=== PATIENT | male | born 1955 | race Caucasian/White ===

== ENCOUNTER 2022-11-12 14:27 | Inpatient (IN) | payer BC, MEDICARE ==
[~2022-11-12] VITALS: Ht 157.5 cm; Wt 47.3 kg
[2022-11-12] VITALS (7 sets, daily range): BP systolic 88–116; BP diastolic 55–85; PULSE 92–105; RESP 17–28; TEMP 98.3–98.5; O2SAT 97–100
[2022-11-12] MEDS: BUDESONIDE/FORMOTEROL 160/4.5MCG INHALER INH SCH (12:28)
[~2022-11-12 14:27] MED LIST: ASPIRIN EC81 MG PO; FAMOTIDINE20 MG PO
[2022-11-12] MEDS ORDERED: SODIUM CHLORIDE 0.9% 1000ML 1,000 ML IV ONE ×2 (14:45→16:15)
[2022-11-12] MEDS ORDERED: METHYLPREDNISOLONE SOD SUCC 125 MG/2ML VIAL IV ONE (14:45)
[2022-11-12] MEDS ORDERED: ALBUTEROL/IPRATROPIUM 3 ML NEB NEB ONE (14:45)
[2022-11-12 14:52] LABS: BASOPHILS % 0.1 % (0.0-1.0); LYMPHOCYTES # (AUTO) 1.9 (1.0-3.2); LYMPHOCYTES % 9.2 % (18.0-39.1); MEAN CORPUSCULAR HEMOGLOBIN 30.2 pg (28-32); MEAN CORPUSCULAR HGB CONC 32.2 g/dL (31-35); MEAN CORPUSCULAR VOLUME 93.7 fL (81-99); MONOCYTES # (AUTO) 0.9 (0.2-0.8); MONOCYTES % 4.6 % (4.4-11.3); NEUTROPHILS # (AUTO) 17.2 (2.1-6.9); NEUTROPHILS % 85.2 % (38.7-80.0); PLATELET COUNT 485 x10e3/uL (140-360); RED BLOOD COUNT 1.89 x10e6/uL (4.3-5.7); RED CELL DISTRIBUTION WIDTH 14.8 % (11.7-14.4)
[2022-11-12 14:58] LABS: HEMATOCRIT 17.7 % (38.2-49.6); HEMOGLOBIN 5.7 g/dL (14.0-18.0)
[2022-11-12] MEDS ORDERED: SODIUM CHLORIDE 0.9% 250ML 250 ML IV ONE (15:00)
[2022-11-12 15:06] LABS: ALANINE AMINOTRANSFERASE 58 IU/L (0-55); ALBUMIN 2.1 g/dL (3.5-5.0); ALBUMIN/GLOBULIN RATIO 0.6 (0.8-2.0); ALKALINE PHOSPHATASE 161 IU/L (40-150); ANION GAP 14.2 mmol/L (8-16); BLOOD UREA NITROGEN 15 mg/dL (7-26); BUN/CREATININE RATIO 25 (6-25); CALCIUM 8.3 mg/dL (8.4-10.2); CARBON DIOXIDE 27 mmol/L (22-29); CHLORIDE 100 mmol/L (98-107); CREATININE, SERUM 0.61 mg/dL (0.72-1.25); GLUCOSE 99 mg/dL (74-118); POTASSIUM 4.2 mmol/L (3.5-5.1); SODIUM 137 mmol/L (136-145)
[2022-11-12] MEDS ORDERED: Vancomycin IV 1 GM in SODIUM CHLORIDE 0.9% 250ML 250 ML IV ONE (15:15)
[2022-11-12] MEDS ORDERED: CEFEPIME 2 GM in SODIUM CHLORIDE 0.9% 100 ML IV ONE (15:15)
[2022-11-12 15:25] LABS: ABG HCO3 27 mmol/L (22-26); ABG PCO2 33 mmHg (35-45); ABG PH 7.53 (7.35-7.45); ABG PO2 64 mmHg (80-105); ABG TCO2 28
[2022-11-12] MEDS ORDERED: ONDANSETRON HCL INJ 2MG/ML 2ML 2 MG/ML VIAL IV PRN (16:30)
[2022-11-12 16:37] LABS: INR 0.95; PARTIAL THROMBOPLASTIN TIME 27.7 seconds (23.8-35.5); PROTHROMBIN TIME 13.2 seconds (11.9-14.5)
[2022-11-12 16:43] LABS: % IRON SATURATION 12 % (15-50); IRON 24 ug/dL (65-175); TOTAL IRON BINDING CAPACITY 202 ug/dL (261-478); TRANSFERRIN 144 mg/dL (174-364)
[2022-11-12] MEDS ORDERED: GUAIFENESIN/CODEINE 5 ML LIQD PO PRN (17:15)
[2022-11-12 18:23] LABS: CLARITY,URINE CLEAR (CLEAR); COLOR,URINE YELLOW (YELLOW)
[2022-11-12 18:24] LABS: KETONES,URINE NEGATIVE (NEGATIVE); LEUKOCYTE ESTERASE ,URINE NEGATIVE (NEGATIVE); NITRITE,URINE NEGATIVE (NEGATIVE); PROTEIN,URINE DIPSTICK NEGATIVE (NEGATIVE); URINE UROBILINOGEN 2 mg/dL (0.2 - 1)
[2022-11-12] MEDS: SODIUM CHLORIDE 0.9% 1000ML 1,000 ML IV SCH (18:27)
[2022-11-12 18:34] LABS: BACTERIA,URINE RARE /HPF; WBC,URINE (MAN) 0-5 /HPF (0-5)
[2022-11-12] MEDS ORDERED: IOPAMIDOL 370 MG/ML 100 ML INFUS..BTL INJ ONE (19:31)
[2022-11-12] MEDS: HYDROCODONE/APAP 5MG-325MG TAB PO PRN (21:43)
[2022-11-13] VITALS (28 sets, daily range): BP systolic 87–140; BP diastolic 48–85; PULSE 80–96; RESP 13–27; TEMP 97–98.1; O2SAT 92–100
[2022-11-13] MEDS: SODIUM CHLORIDE 0.9% 1000ML 1,000 ML IV SCH ×3 (02:49→19:58)
[2022-11-13 06:54] LABS: BASOPHILS % 0.2 % (0.0-1.0); HEMATOCRIT 23.2 % (38.2-49.6); HEMOGLOBIN 7.4 g/dL (14.0-18.0); LYMPHOCYTES % 7.8 % (18.0-39.1); MEAN CORPUSCULAR HEMOGLOBIN 29.8 pg (28-32); MEAN CORPUSCULAR HGB CONC 31.9 g/dL (31-35); MEAN CORPUSCULAR VOLUME 93.5 fL (81-99); MONOCYTES # (AUTO) 0.6 (0.2-0.8); MONOCYTES % 4.4 % (4.4-11.3); NEUTROPHILS # (AUTO) 11.3 (2.1-6.9); NEUTROPHILS % 86.5 % (38.7-80.0); PLATELET COUNT 385 x10e3/uL (140-360); RED BLOOD COUNT 2.48 x10e6/uL (4.3-5.7); RED CELL DISTRIBUTION WIDTH 14.6 % (11.7-14.4)
[2022-11-13 07:39] LABS: ALBUMIN 1.6 g/dL (3.5-5.0); ALBUMIN/GLOBULIN RATIO 0.6 (0.8-2.0); ANION GAP 7.1 mmol/L (8-16); CALCIUM 7.2 mg/dL (8.4-10.2); CREATININE, SERUM 0.5 mg/dL (0.72-1.25); POTASSIUM 4.1 mmol/L (3.5-5.1)
[2022-11-13] MEDS: ASPIRIN 81 MG ENTERIC COATED PO SCH (08:00)
[2022-11-13] MEDS: FAMOTIDINE 20 MG TAB PO SCH ×2 (08:00→16:10)
[2022-11-13] MEDS: IRON SUCROSE 100 MG in SODIUM CHLORIDE 0.9% 100 ML IV SCH (08:01)
[2022-11-13] MEDS: BUDESONIDE/FORMOTEROL 160/4.5MCG INHALER INH SCH ×2 (08:16→20:10)
[2022-11-13] MEDS ORDERED: GADOBENATE DIMEGLUMINE 1 ML IV ONE (11:47)
[2022-11-13] MEDS: LEVALBUTEROL HCL SOLN NEBU 0.63 MG/3 ML NEB INH PRN (19:26)
[2022-11-13] MEDS: ATORVASTATIN 40 MG TAB PO SCH (20:52)
[2022-11-14] VITALS (23 sets, daily range): BP systolic 77–152; BP diastolic 50–89; PULSE 74–110; RESP 14–27; TEMP 97.8–98.2; O2SAT 89–100
[2022-11-14] MEDS: LEVALBUTEROL HCL SOLN NEBU 0.63 MG/3 ML NEB INH PRN ×3 (01:18→19:25)
[2022-11-14] MEDS: SODIUM CHLORIDE 0.9% 1000ML 1,000 ML IV SCH (02:56)
[2022-11-14] MEDS ORDERED: CYANOCOBALAMIN INJ 1,000 MCG/ML VIAL IM ONE (03:30)
[2022-11-14 06:09] LABS: BASOPHILS # (AUTO) 0.1 (0.0-0.1); BASOPHILS % 0.3 % (0.0-1.0); EOSINOPHILS % 0.2 % (0.0-6.0); HEMATOCRIT 28.1 % (38.2-49.6); HEMOGLOBIN 8.9 g/dL (14.0-18.0); LYMPHOCYTES # (AUTO) 1.5 (1.0-3.2); LYMPHOCYTES % 8.7 % (18.0-39.1); MEAN CORPUSCULAR HEMOGLOBIN 30.2 pg (28-32); MEAN CORPUSCULAR HGB CONC 31.7 g/dL (31-35); MEAN CORPUSCULAR VOLUME 95.3 fL (81-99); MONOCYTES # (AUTO) 0.7 (0.2-0.8); MONOCYTES % 4.2 % (4.4-11.3); NEUTROPHILS # (AUTO) 14.3 (2.1-6.9); NEUTROPHILS % 85.2 % (38.7-80.0); PLATELET COUNT 458 x10e3/uL (140-360); RED BLOOD COUNT 2.95 x10e6/uL (4.3-5.7); RED CELL DISTRIBUTION WIDTH 15.3 % (11.7-14.4)
[2022-11-14 06:30] LABS: ALBUMIN 1.9 g/dL (3.5-5.0); ALBUMIN/GLOBULIN RATIO 0.7 (0.8-2.0); ANION GAP 8.8 mmol/L (8-16); CALCIUM 7.7 mg/dL (8.4-10.2); CREATININE, SERUM 0.52 mg/dL (0.72-1.25); POTASSIUM 3.8 mmol/L (3.5-5.1)
[2022-11-14] MEDS: BUDESONIDE/FORMOTEROL 160/4.5MCG INHALER INH SCH ×2 (07:54→19:25)
[2022-11-14] MEDS: METHYLPREDNISOLONE SOD SUCC 125 MG/2ML VIAL IV SCH ×2 (08:10→20:54)
[2022-11-14] MEDS: FAMOTIDINE 20 MG TAB PO SCH ×2 (08:11→16:03)
[2022-11-14] MEDS: ASPIRIN 81 MG ENTERIC COATED PO SCH (08:11)
[2022-11-14] MEDS: CYANOCOBALAMIN INJ 1,000 MCG/ML VIAL IM SCH ×2 (08:11→08:32)
[2022-11-14] MEDS: IRON SUCROSE 100 MG in SODIUM CHLORIDE 0.9% 100 ML IV SCH (08:11)
[2022-11-14] MEDS ORDERED: FUROSEMIDE INJ 10 MG/ML 4 ML VIAL IV ONE (08:30)
[2022-11-14] MEDS ORDERED: FUROSEMIDE INJ 10 MG/ML 2 ML VIAL IV ONE (08:30)
[2022-11-14 15:27] LABS: ABG HCO3 26 mmol/L (22-26); ABG PCO2 46 mmHg (35-45); ABG PH 7.36 (7.35-7.45); ABG PO2 60 mmHg (80-105); ABG TCO2 28
[2022-11-14] MEDS: ATORVASTATIN 40 MG TAB PO SCH (20:54)
[2022-11-15] VITALS (34 sets, daily range): BP systolic 80–153; BP diastolic 53–120; PULSE 60–120; RESP 14–26; TEMP 97.8–98.1; O2SAT 84–100
[2022-11-15] MEDS: HYDROCODONE/APAP 5MG-325MG TAB PO PRN ×3 (06:25→22:56)
[2022-11-15 06:50] LABS: BASOPHILS % 0.1 % (0.0-1.0); HEMATOCRIT 24.2 % (38.2-49.6); HEMOGLOBIN 7.9 g/dL (14.0-18.0); LYMPHOCYTES # (AUTO) 0.4 (1.0-3.2); LYMPHOCYTES % 3.4 % (18.0-39.1); MEAN CORPUSCULAR HEMOGLOBIN 30.3 pg (28-32); MEAN CORPUSCULAR HGB CONC 32.6 g/dL (31-35); MEAN CORPUSCULAR VOLUME 92.7 fL (81-99); MONOCYTES # (AUTO) 0.1 (0.2-0.8); NEUTROPHILS % 94.8 % (38.7-80.0); PLATELET COUNT 484 x10e3/uL (140-360); RED BLOOD COUNT 2.61 x10e6/uL (4.3-5.7); RED CELL DISTRIBUTION WIDTH 14.7 % (11.7-14.4)
[2022-11-15 07:12] LABS: ALBUMIN 1.7 g/dL (3.5-5.0); ALBUMIN/GLOBULIN RATIO 0.6 (0.8-2.0); ANION GAP 8.3 mmol/L (8-16); CALCIUM 7.9 mg/dL (8.4-10.2); CREATININE, SERUM 0.52 mg/dL (0.72-1.25); POTASSIUM 4.3 mmol/L (3.5-5.1)
[2022-11-15] MEDS: BUDESONIDE/FORMOTEROL 160/4.5MCG INHALER INH SCH ×2 (08:45→19:25)
[2022-11-15] MEDS: METHYLPREDNISOLONE SOD SUCC 125 MG/2ML VIAL IV SCH ×2 (09:14→21:35)
[2022-11-15] MEDS: FAMOTIDINE 20 MG TAB PO SCH ×2 (09:15→16:33)
[2022-11-15] MEDS: ASPIRIN 81 MG ENTERIC COATED PO SCH (09:15)
[2022-11-15] MEDS: IRON SUCROSE 100 MG in SODIUM CHLORIDE 0.9% 100 ML IV SCH (09:15)
[2022-11-15] MEDS: CYANOCOBALAMIN 1,000 MCG TAB PO SCH (09:15)
[2022-11-15] MEDS: LEVALBUTEROL HCL SOLN NEBU 0.63 MG/3 ML NEB INH PRN (19:25)
[2022-11-15] MEDS: MUPIROCIN 2% OINT 22 GM TUBE TOP SCH (21:35)
[2022-11-15] MEDS: ATORVASTATIN 40 MG TAB PO SCH (21:35)
[2022-11-16] VITALS (27 sets, daily range): BP systolic 99–146; BP diastolic 61–87; PULSE 55–108; RESP 12–26; TEMP 97.7–98.6; O2SAT 84–100
[2022-11-16] MEDS: HYDROCODONE/APAP 5MG-325MG TAB PO PRN (05:10)
[2022-11-16 06:50] LABS: BASOPHILS % 0.1 % (0.0-1.0); HEMATOCRIT 26.8 % (38.2-49.6); HEMOGLOBIN 8.5 g/dL (14.0-18.0); LYMPHOCYTES # (AUTO) 0.6 (1.0-3.2); LYMPHOCYTES % 3.4 % (18.0-39.1); MEAN CORPUSCULAR HEMOGLOBIN 30.1 pg (28-32); MEAN CORPUSCULAR HGB CONC 31.7 g/dL (31-35); MONOCYTES # (AUTO) 0.4 (0.2-0.8); MONOCYTES % 2.3 % (4.4-11.3); NEUTROPHILS # (AUTO) 15.1 (2.1-6.9); NEUTROPHILS % 93.4 % (38.7-80.0); PLATELET COUNT 514 x10e3/uL (140-360); RED BLOOD COUNT 2.82 x10e6/uL (4.3-5.7); RED CELL DISTRIBUTION WIDTH 15.7 % (11.7-14.4)
[2022-11-16 07:06] LABS: ALBUMIN 1.9 g/dL (3.5-5.0); ALBUMIN/GLOBULIN RATIO 0.7 (0.8-2.0); ANION GAP 9.4 mmol/L (8-16); CALCIUM 7.7 mg/dL (8.4-10.2); CREATININE, SERUM 0.54 mg/dL (0.72-1.25); POTASSIUM 4.4 mmol/L (3.5-5.1)
[2022-11-16] MEDS: FAMOTIDINE 20 MG TAB PO SCH ×2 (08:31→16:15)
[2022-11-16] MEDS: ASPIRIN 81 MG ENTERIC COATED PO SCH ×2 (10:04→10:32)
[2022-11-16] MEDS: METHYLPREDNISOLONE SOD SUCC 125 MG/2ML VIAL IV SCH ×2 (10:04→20:52)
[2022-11-16] MEDS: CYANOCOBALAMIN 1,000 MCG TAB PO SCH (10:04)
[2022-11-16] MEDS: IRON SUCROSE 100 MG in SODIUM CHLORIDE 0.9% 100 ML IV SCH (10:32)
[2022-11-16] MEDS: MUPIROCIN 2% OINT 22 GM TUBE TOP SCH ×2 (10:42→20:53)
[2022-11-16] MEDS: BUDESONIDE/FORMOTEROL 160/4.5MCG INHALER INH SCH ×2 (14:55→19:40)
[2022-11-16 16:48] LABS: HEMATOCRIT 30.7 % (38.2-49.6); HEMOGLOBIN 9.9 g/dL (14.0-18.0)
[2022-11-16] MEDS: ATORVASTATIN 40 MG TAB PO SCH (20:53)
[2022-11-16] MEDS: MELATONIN 3 MG TAB PO SCH (20:53)
[2022-11-17] VITALS (20 sets, daily range): BP systolic 98–136; BP diastolic 59–94; PULSE 68–109; RESP 13–32; TEMP 97.7–97.8; O2SAT 92–99
[2022-11-17 06:48] LABS: BASOPHILS % 0.2 % (0.0-1.0); HEMATOCRIT 28.9 % (38.2-49.6); LYMPHOCYTES # (AUTO) 0.7 (1.0-3.2); LYMPHOCYTES % 5.2 % (18.0-39.1); MEAN CORPUSCULAR HEMOGLOBIN 30.5 pg (28-32); MEAN CORPUSCULAR HGB CONC 31.1 g/dL (31-35); MONOCYTES # (AUTO) 0.5 (0.2-0.8); MONOCYTES % 3.9 % (4.4-11.3); NEUTROPHILS # (AUTO) 11.8 (2.1-6.9); NEUTROPHILS % 89.8 % (38.7-80.0); PLATELET COUNT 563 x10e3/uL (140-360); RED BLOOD COUNT 2.95 x10e6/uL (4.3-5.7); RED CELL DISTRIBUTION WIDTH 15.9 % (11.7-14.4)
[2022-11-17 07:17] LABS: ALBUMIN 2.1 g/dL (3.5-5.0); ALBUMIN/GLOBULIN RATIO 0.8 (0.8-2.0); ANION GAP 9.4 mmol/L (8-16); CALCIUM 8.1 mg/dL (8.4-10.2); CREATININE, SERUM 0.56 mg/dL (0.72-1.25); POTASSIUM 4.4 mmol/L (3.5-5.1)
[2022-11-17] MEDS: IRON SUCROSE 100 MG in SODIUM CHLORIDE 0.9% 100 ML IV SCH (09:00)
[2022-11-17] MEDS: ASPIRIN 81 MG ENTERIC COATED PO SCH (09:43)
[2022-11-17] MEDS: CYANOCOBALAMIN 1,000 MCG TAB PO SCH (09:43)
[2022-11-17] MEDS: METHYLPREDNISOLONE SOD SUCC 125 MG/2ML VIAL IV SCH ×2 (09:43→20:31)
[2022-11-17] MEDS: MUPIROCIN 2% OINT 22 GM TUBE TOP SCH ×2 (09:43→20:31)
[2022-11-17] MEDS: FAMOTIDINE 20 MG TAB PO SCH ×2 (09:43→17:55)
[2022-11-17] MEDS: FUROSEMIDE INJ 10 MG/ML 2 ML VIAL IV SCH (09:44)
[2022-11-17] MEDS: LEVALBUTEROL HCL SOLN NEBU 0.63 MG/3 ML NEB INH PRN ×2 (13:10→19:40)
[2022-11-17] MEDS: BUDESONIDE/FORMOTEROL 160/4.5MCG INHALER INH SCH ×2 (13:10→19:50)
[2022-11-17] MEDS: ATORVASTATIN 40 MG TAB PO SCH (20:30)
[2022-11-17] MEDS: MELATONIN 3 MG TAB PO SCH (20:31)
[2022-11-18] VITALS (28 sets, daily range): BP systolic 94–119; BP diastolic 60–80; PULSE 71–104; RESP 13–27; TEMP 97.7–98.7; O2SAT 88–100
[2022-11-18] MEDS: BUDESONIDE/FORMOTEROL 160/4.5MCG INHALER INH SCH ×2 (07:35→19:25)
[2022-11-18] MEDS: FUROSEMIDE INJ 10 MG/ML 2 ML VIAL IV SCH (08:18)
[2022-11-18] MEDS: CYANOCOBALAMIN 1,000 MCG TAB PO SCH (08:18)
[2022-11-18] MEDS: ASPIRIN 81 MG ENTERIC COATED PO SCH (08:18)
[2022-11-18] MEDS: FAMOTIDINE 20 MG TAB PO SCH ×2 (08:18→16:17)
[2022-11-18] MEDS: METHYLPREDNISOLONE SOD SUCC 125 MG/2ML VIAL IV SCH (08:18)
[2022-11-18] MEDS: MUPIROCIN 2% OINT 22 GM TUBE TOP SCH ×2 (08:19→20:45)
[2022-11-18] MEDS ORDERED: METOPROLOL TARTRATE INJ 1 MG/ML VIAL IV ONE (09:30)
[2022-11-18] MEDS ORDERED: IOPAMIDOL 370 MG/ML 100 ML INFUS..BTL INJ ONE (13:27)
[2022-11-18] MEDS ORDERED: SODIUM CHLORIDE 0.9% 250ML 250 ML ONE (16:12)
[2022-11-18] MEDS: MELATONIN 3 MG TAB PO SCH (21:56)
[2022-11-18] MEDS: ATORVASTATIN 40 MG TAB PO SCH (21:56)
[2022-11-18] MEDS: HYDROCODONE/APAP 5MG-325MG TAB PO PRN (21:57)
[2022-11-19] VITALS (12 sets, daily range): BP systolic 95–118; BP diastolic 58–80; PULSE 79–99; RESP 17–19; TEMP 97.5–98.3; O2SAT 93–100
[2022-11-19] MEDS: BUDESONIDE/FORMOTEROL 160/4.5MCG INHALER INH SCH ×2 (06:41→21:14)
[2022-11-19] MEDS: MUPIROCIN 2% OINT 22 GM TUBE TOP SCH ×2 (08:45→21:08)
[2022-11-19] MEDS: FAMOTIDINE 20 MG TAB PO SCH ×2 (09:20→16:43)
[2022-11-19] MEDS: ASPIRIN 81 MG ENTERIC COATED PO SCH (09:20)
[2022-11-19] MEDS: METHYLPREDNISOLONE SOD SUCC 125 MG/2ML VIAL IV SCH (09:21)
[2022-11-19] MEDS: FUROSEMIDE INJ 10 MG/ML 2 ML VIAL IV SCH (09:22)
[2022-11-19] MEDS: HYDROCODONE/APAP 5MG-325MG TAB PO PRN ×2 (09:38→21:14)
[2022-11-19] MEDS: CYANOCOBALAMIN 1,000 MCG TAB PO SCH (09:38)
[2022-11-19] MEDS ORDERED: ONDANSETRON HCL 4 MG ORAL DISINTEGRATING TAB PO PRN (13:00)
[2022-11-19] MEDS: ATORVASTATIN 40 MG TAB PO SCH (21:08)
[2022-11-19] MEDS: MELATONIN 3 MG TAB PO SCH (21:08)
[2022-11-20] VITALS (10 sets, daily range): BP systolic 87–128; BP diastolic 58–78; PULSE 81–102; RESP 17–21; TEMP 97.6–98.1; O2SAT 93–100
[2022-11-20] MEDS: BUDESONIDE/FORMOTEROL 160/4.5MCG INHALER INH SCH ×2 (07:00→20:20)
[2022-11-20] MEDS: FAMOTIDINE 20 MG TAB PO SCH ×2 (08:53→17:02)
[2022-11-20] MEDS: MUPIROCIN 2% OINT 22 GM TUBE TOP SCH ×2 (08:53→20:53)
[2022-11-20] MEDS: IRON-VITAMIN-MINERAL CAPSULE PO SCH (09:57)
[2022-11-20] MEDS: ASPIRIN 81 MG ENTERIC COATED PO SCH (09:57)
[2022-11-20] MEDS: METHYLPREDNISOLONE SOD SUCC 125 MG/2ML VIAL IV SCH (09:57)
[2022-11-20] MEDS: CYANOCOBALAMIN 1,000 MCG TAB PO SCH (09:57)
[2022-11-20] MEDS: FUROSEMIDE INJ 10 MG/ML 2 ML VIAL IV SCH (09:57)
[2022-11-20] MEDS: LEVALBUTEROL HCL SOLN NEBU 0.63 MG/3 ML NEB INH PRN ×2 (10:51→20:05)
[2022-11-20] MEDS: ATORVASTATIN 40 MG TAB PO SCH (20:53)
[2022-11-20] MEDS: MELATONIN 3 MG TAB PO SCH (20:53)
[2022-11-20] MEDS: TRAMADOL HCL 50 MG TAB PO PRN (20:58)
[2022-11-21] VITALS (8 sets, daily range): BP systolic 87–133; BP diastolic 57–87; PULSE 73–99; RESP 14–21; TEMP 97.6–98.6; O2SAT 94–100
[2022-11-21 06:19] LABS: BASOPHILS % 0.2 % (0.0-1.0); EOSINOPHILS # (AUTO) 0.1 (0.0-0.4); HEMATOCRIT 29.5 % (38.2-49.6); HEMOGLOBIN 9.4 g/dL (14.0-18.0); LYMPHOCYTES # (AUTO) 1.1 (1.0-3.2); LYMPHOCYTES % 11.8 % (18.0-39.1); MEAN CORPUSCULAR HEMOGLOBIN 30.7 pg (28-32); MEAN CORPUSCULAR HGB CONC 31.9 g/dL (31-35); MEAN CORPUSCULAR VOLUME 96.4 fL (81-99); MONOCYTES # (AUTO) 0.6 (0.2-0.8); MONOCYTES % 6.8 % (4.4-11.3); NEUTROPHILS # (AUTO) 7.3 (2.1-6.9); NEUTROPHILS % 79.9 % (38.7-80.0); PLATELET COUNT 478 x10e3/uL (140-360); RED BLOOD COUNT 3.06 x10e6/uL (4.3-5.7); RED CELL DISTRIBUTION WIDTH 15.9 % (11.7-14.4)
[2022-11-21] MEDS: BUDESONIDE/FORMOTEROL 160/4.5MCG INHALER INH SCH ×2 (07:06→19:10)
[2022-11-21] MEDS: FUROSEMIDE INJ 10 MG/ML 2 ML VIAL IV SCH (09:01)
[2022-11-21] MEDS: ASPIRIN 81 MG ENTERIC COATED PO SCH (09:01)
[2022-11-21] MEDS: METHYLPREDNISOLONE SOD SUCC 125 MG/2ML VIAL IV SCH (09:01)
[2022-11-21] MEDS: IRON-VITAMIN-MINERAL CAPSULE PO SCH (09:01)
[2022-11-21] MEDS: CYANOCOBALAMIN 1,000 MCG TAB PO SCH (09:01)
[2022-11-21] MEDS: MUPIROCIN 2% OINT 22 GM TUBE TOP SCH ×2 (09:02→20:23)
[2022-11-21] MEDS: FAMOTIDINE 20 MG TAB PO SCH ×2 (09:09→18:13)
[2022-11-21] MEDS: MELATONIN 3 MG TAB PO SCH (20:22)
[2022-11-21] MEDS: ATORVASTATIN 40 MG TAB PO SCH (20:22)
[2022-11-21] MEDS: TRAMADOL HCL 50 MG TAB PO PRN (20:26)
[2022-11-22] VITALS (7 sets, daily range): BP systolic 90–106; BP diastolic 51–68; PULSE 67–92; RESP 18–21; TEMP 97.7–98.6; O2SAT 95–100
[2022-11-22] MEDS: BUDESONIDE/FORMOTEROL 160/4.5MCG INHALER INH SCH (06:49)
[2022-11-22] MEDS: MUPIROCIN 2% OINT 22 GM TUBE TOP SCH (09:04)
[2022-11-22] MEDS: CYANOCOBALAMIN 1,000 MCG TAB PO SCH (09:05)
[2022-11-22] MEDS: IRON-VITAMIN-MINERAL CAPSULE PO SCH (09:05)
[2022-11-22] MEDS: ASPIRIN 81 MG ENTERIC COATED PO SCH (09:05)
[2022-11-22] MEDS: FAMOTIDINE 20 MG TAB PO SCH (09:05)
[2022-11-22] MEDS: FUROSEMIDE INJ 10 MG/ML 2 ML VIAL IV SCH (09:05)
[2022-11-22 09:41] LABS: ANION GAP 11.2 mmol/L (8-16); CALCIUM 8.7 mg/dL (8.4-10.2); CREATININE, SERUM 0.58 mg/dL (0.72-1.25); POTASSIUM 4.2 mmol/L (3.5-5.1)
== END 2022-11-22 16:30 | disposition home or self-care (01) | DRG 871 ==
LOC: ER 14:29 → ERHOLD 16:20 → ICU 19:45 → MED/SURG3 11-18 14:35
PROVIDERS: ADMIT Internal Medicine; ATTEND Internal Medicine
PROC: 02HV33Z Insertion of Infusion Device into Superior Vena Cava, Percutaneous Approach (ICD-10-PCS; principal; 2022-11-12)
PROC: 30233N1 Transfusion of Nonautologous Red Blood Cells into Peripheral Vein, Percutaneous Approach (ICD-10-PCS; 2022-11-12)
PROC: 4A033R1 Measurement of Arterial Saturation, Peripheral, Percutaneous Approach (ICD-10-PCS; 2022-11-12)
PROC: 5A0935A Assistance with Respiratory Ventilation, Less than 24 Consecutive Hours, High Flow/Velocity Cannula (ICD-10-PCS; 2022-11-16)
DX: A41.9 Sepsis, unspecified organism (principal); E43 Unspecified severe protein-calorie malnutrition; I50.23 Acute on chronic systolic (congestive) heart failure; J18.9 Pneumonia, unspecified organism; J96.21 Acute and chronic respiratory failure with hypoxia; I63.231 Cerebral infarction due to unspecified occlusion or stenosis of right carotid arteries; R64 Cachexia; Z68.1 Body mass index [BMI] 19.9 or less, adult; G81.94 Hemiplegia, unspecified affecting left nondominant side; K92.2 Gastrointestinal hemorrhage, unspecified; R65.20 Severe sepsis without septic shock; J43.9 Emphysema, unspecified; R91.1 Solitary pulmonary nodule; R00.0 Tachycardia, unspecified; D50.9 Iron deficiency anemia, unspecified; I27.20 Pulmonary hypertension, unspecified; Z20.822 Contact with and (suspected) exposure to COVID-19; Z88.2 Allergy status to sulfonamides; Z79.82 Long term (current) use of aspirin; Z87.891 Personal history of nicotine dependence
CPT/HCPCS: 0223U; 36415; 36569; 36600; 70450; 70553; 71045; 71260; 74177; 80048; 80053; 81001; 82607; 82805; 83010; 83540; 83605; 83880; 84466; 84484; 85014; 85018; 85025; 85610; 85730; 86850; 86900; 86920; 87040; 87086; 87400; 93005; 93306; 93880; 94640; 94664; 94760; 94799; 99284; J0692; J0696; J1756; J1940; J2930; J3420; J7030; J7050; P9016; Q9967